=== PATIENT | male | born 1995 | race Two or more races ===

== ENCOUNTER 2019-01-26 22:01 | Emergency (ER) | payer OTHER ==
[~2019-01-26] VITALS: Ht 193 cm; Wt 87.3 kg
[2019-01-27 02:00] VITALS: BP 128/79
== END 2019-01-27 02:05 | disposition home or self-care (01) ==
LOC: EMS 22:01
DX: M25.572 Pain in left ankle and joints of left foot (principal)
CPT/HCPCS: 29540